=== PATIENT | female | born 1980 | race Caucasian/White ===

== ENCOUNTER 2017-12-26 08:43 | Emergency (ER) | payer MEDICAID ==
[~2017-12-26] VITALS: Ht 170.2 cm; Wt 82.0 kg
[2017-12-26 08:45] VITALS: BP 110/74
[2017-12-26] MEDS ORDERED: HYDROmorphone 2 MG/ML, 1ML ONE (09:12)
[2017-12-26] MEDS ORDERED: KETOROLAC 30 MG/1 ML ONE (09:13)
[2017-12-26] MEDS ORDERED: METHOCARBAMOL 750 MG TABLET ONE (09:13)
[2017-12-26] MEDS ORDERED: ONDANSETRON ODT 4 MG ONE (09:21)
[2017-12-26] MEDS ORDERED: HYDROmorphone 1 MG/ML, 1ML IM ONE (09:30)
[2017-12-26] MEDS ORDERED: ONDANSETRON ODT 4 MG PO ONE (09:30)
[2017-12-26] MEDS ORDERED: METHOCARBAMOL 750 MG TABLET PO ONE (09:30)
[2017-12-26] MEDS ORDERED: KETOROLAC 30 MG/1 ML IM ONE (09:30)
== END 2017-12-26 09:59 | disposition home or self-care (01) ==
LOC: ED 09:50
DX: S39.012A Strain of muscle, fascia and tendon of lower back, initial encounter (principal); Z88.0 Allergy status to penicillin; Z88.5 Allergy status to narcotic agent; Y93.89 Activity, other specified; X58.XXXA Exposure to other specified factors, initial encounter; Y92.89 Other specified places as the place of occurrence of the external cause; Y99.8 Other external cause status
CPT/HCPCS: 96372; 99284; J1170; J1885; Q0162

== ENCOUNTER 2018-01-22 00:18 | Emergency (ER) | payer OTHER, MEDICAID ==
[~2018-01-22] VITALS: Ht 170.2 cm; Wt 86.1 kg
[2018-01-22] MEDS ORDERED: CYCL-259 PO (00:32)
[2018-01-22 01:18] LABS: BASOPHILS # (AUTO) 0.08 x10^3/uL (0-0.1); BASOPHILS % (AUTO) 1 % (0-1); EOSINOPHILS # (AUTO) 0.04 x10^3/uL (0-0.4); EOSINOPHILS % (AUTO) 1 % (1-7); LYMPHOCYTES # (AUTO) 1.81 x10^3/uL (1-3.4); LYMPHOCYTES % (AUTO) 23 % (22-44); MD NO; MEAN CORPUSCULAR HEMOGLOBIN 29.7 pg (27.0-34.8); MEAN CORPUSCULAR HGB CONC 33.5 g/dL (32.4-35.8); MEAN CORPUSCULAR VOLUME 88.6 fL (80-100); MEAN PLATELET VOLUME 8.7 fL (7.4-10.4); MONOCYTES # (AUTO) 0.65 x10^3/uL (0.2-0.8); MONOCYTES % (AUTO) 8 % (2-9); NEUTROPHILS # (AUTO) 5.29 x10^3/uL (1.8-6.8); NEUTROPHILS % (AUTO) 67 % (42-75); PLATELET COUNT 226 x10^3/uL (130-400); RED BLOOD COUNT 4.75 x10^6/uL (3.82-5.3); RED CELL DISTRIBUTION WIDTH 13.5 % (9.6-15.2)
[2018-01-22 01:23] LABS: ALBUMIN 3.3 g/dL (3.4-5.0); ANION GAP 6 mmol/L (5-15); CALCIUM 8.7 mg/dL (8.5-10.1); CHLORIDE 105 mmol/L (98-107)
[2018-01-22 01:29] LABS: ALANINE AMINOTRANSFERASE 19 U/L (12-78); ALKALINE PHOSPHATASE 57 U/L (45-117); BILIRUBIN,TOTAL 0.5 mg/dL (0.2-1.0); CREATININE 0.94 mg/dL (0.55-1.02); TOTAL PROTEIN 6.7 g/dL (6.4-8.2); TROPONIN I < 0.015 ng/mL (0.000-0.045)
[2018-01-22 01:30] LABS: HCG UR SG 1.023 (1.003-1.030); MICROSCOPIC NOT IND
[2018-01-22 01:33] LABS: CULTURE INDICATED? NO
[2018-01-22 02:39] VITALS: BP 143/76
== END 2018-01-22 02:50 | disposition home or self-care (01) ==
LOC: ED 01:52
DX: K21.0 Gastro-esophageal reflux disease with esophagitis (principal); K29.00 Acute gastritis without bleeding; R19.7 Diarrhea, unspecified; Z88.0 Allergy status to penicillin
CPT/HCPCS: 36415; 80053; 81003; 81025; 83690; 84443; 84484; 85025; 93005; 99285

== ENCOUNTER 2018-06-27 22:11 | Emergency (ER) | payer OTHER, MEDICAID ==
[~2018-06-27] VITALS: Ht 172.7 cm; Wt 88.7 kg
[~2018-06-27 22:11] MED LIST: CYCL-259 PO
[2018-06-27 22:21] VITALS: BP 112/76
[2018-06-27] MEDS ORDERED: HYDROmorphone 2 MG/ML, 1ML ONE (22:53)
[2018-06-27] MEDS ORDERED: DIAZEPAM 5 MG TABLET ONE (22:54)
[2018-06-27] MEDS ORDERED: DIAZEPAM 5 MG/ML, 10ML VIAL IM ONE (23:00)
[2018-06-27] MEDS ORDERED: HYDROmorphone 1 MG/ML, 1ML IM ONE (23:00)
== END 2018-06-27 23:24 | disposition home or self-care (01) ==
LOC: ED 23:00
DX: S46.812A Strain of other muscles, fascia and tendons at shoulder and upper arm level, left arm, initial encounter (principal); M54.2 Cervicalgia; K21.9 Gastro-esophageal reflux disease without esophagitis; G89.29 Other chronic pain; X58.XXXA Exposure to other specified factors, initial encounter; Y93.89 Activity, other specified; Y92.89 Other specified places as the place of occurrence of the external cause; Y99.8 Other external cause status
CPT/HCPCS: 96372; 99283; J1170; J3360

== ENCOUNTER 2018-07-04 19:19 | Emergency (ER) | payer OTHER, MEDICAID ==
[~2018-07-04] VITALS: Ht 172.7 cm; Wt 86.4 kg
[2018-07-04 19:21] VITALS: BP 124/85
== END 2018-07-04 21:03 | disposition home or self-care (01) ==
LOC: ED 21:01
DX: S93.602A Unspecified sprain of left foot, initial encounter (principal); K21.9 Gastro-esophageal reflux disease without esophagitis; W22.01XA Walked into wall, initial encounter; Y93.K1 Activity, walking an animal; Y92.410 Unspecified street and highway as the place of occurrence of the external cause; Y99.8 Other external cause status
CPT/HCPCS: 99283

== ENCOUNTER 2018-09-10 23:06 | Emergency (ER) | payer OTHER, MEDICAID ==
[~2018-09-10] VITALS: Ht 172.7 cm; Wt 84.2 kg
[2018-09-10 23:10] VITALS: BP 114/70
--- NOTE | 2018-09-10 23:19 | NUR ---
TASK RN: PT REPORTS ANXIETY ATTACK X TWO HOURS "I'M JUST UNDER SO MUCH STRESS". PT PWD; APPEARS AGGITATED. RESPIRATIONS EVEN/UNLABORED. PT AMBULATED STEADILY TO ROOM WITH RN. FRIEND ACCOMPANIES.
[2018-09-10] MEDS ORDERED: KETOROLAC 60 MG/2 ML IM ONE (23:30)
[2018-09-10] MEDS ORDERED: LORazepam 2 MG/ML, 1ML IM ONE (23:30)
[2018-09-10] MEDS ORDERED: KETOROLAC 30 MG/1 ML ONE (23:32)
[2018-09-10] MEDS ORDERED: LORazepam 2 MG/ML, 1ML ONE (23:33)
--- NOTE | 2018-09-10 23:54 | NUR ---
PT MEDICATED PER EMAR.
--- NOTE | 2018-09-11 00:06 | NUR ---
REPORT TO KASHIF HERNANDEZ.
--- NOTE | 2018-09-11 00:29 | NUR ---
PT VSS AND UPDATED IN EMR. PT AMBULATED TO REGISTRATION DESK WITH STEADY GAIT FOR D/C HOME WITH EX BOYFRIEND. PT MEDICATED PER SEP.
== END 2018-09-11 00:35 | disposition home or self-care (01) ==
LOC: ED 23:25
DX: F41.0 Panic disorder [episodic paroxysmal anxiety] (principal); J45.41 Moderate persistent asthma with (acute) exacerbation; K21.9 Gastro-esophageal reflux disease without esophagitis; G89.29 Other chronic pain
CPT/HCPCS: 93005; 96372; 99283; J1885; J2060; J7512

== ENCOUNTER 2018-12-03 01:38 | Emergency (ER) | payer OTHER, MEDICAID ==
[~2018-12-03] VITALS: Ht 172.7 cm; Wt 79.0 kg
[2018-12-03 01:41] VITALS: BP 118/77
--- NOTE | 2018-12-03 02:01 | NUR ---
FIRST CONTACT WITH PT. PT STATES THAT SHE THINKS HER IUD HAS SOMEHOW SHIFTED. PT HAVING ABDOMINAL AND LBP AND HAS A RECENT VAGINAL DISCHARGE. PT DENIES V/D. PT'S AOX4. RESPS EVEN AND UNLABORED. BP/SPO2 MONITORS IN PLACE. CALL LIGHT WITHIN REACH. EDMD AT BEDSIDE TO ASSESS.
--- NOTE | 2018-12-03 02:02 | NUR ---
PT TO US NOW.
[2018-12-03] MEDS ORDERED: OXYcodone/APAP 5/325MG TABLET ONE (02:11)
--- NOTE | 2018-12-03 02:23 | NUR ---
PT MEDICATED PER EMAR. PT TOLERATED WELL.
[2018-12-03] MEDS ORDERED: OXYcodone/APAP 5/325MG TABLET PO ONE (02:30)
[2018-12-03 02:42] LABS: MICROSCOPIC NOT IND
[2018-12-03 02:44] LABS: CULTURE INDICATED? NO
--- NOTE | 2018-12-03 03:21 | NUR ---
pt given dc instructions. pt's aox4. resps even and unlabored. pt amb to dc with steady gait. no acute distress at dc.
== END 2018-12-03 03:22 | disposition home or self-care (01) ==
LOC: ED 02:40
DX: R10.2 Pelvic and perineal pain (principal); K21.9 Gastro-esophageal reflux disease without esophagitis; J45.909 Unspecified asthma, uncomplicated; G89.29 Other chronic pain; Z88.0 Allergy status to penicillin; Z88.5 Allergy status to narcotic agent
CPT/HCPCS: 76830; 81003; 81025; 99284

== ENCOUNTER 2019-10-24 05:03 | Emergency (ER) | payer MEDICAID, OTHER ==
[~2019-10-24] VITALS: Ht 172.7 cm; Wt 83.5 kg
[2019-10-24] MEDS ORDERED: OXYcodone/APAP 5/325MG TABLET PO ONE (05:30)
[2019-10-24] MEDS ORDERED: OXYcodone/APAP 5/325MG TABLET ONE (05:34)
[2019-10-24] MEDS ORDERED: DIAZ5TAB PO (05:49)
[2019-10-24] MEDS ORDERED: LAMO100T8 PO (05:49)
[2019-10-24] MEDS ORDERED: [UNRECOGNIZED DRUG - OTHER] (05:49)
--- NOTE | 2019-10-24 05:50 | NUR ---
PT MEDICATED PERMAR. ICE PACK APPLIED TO RIGHT HAND. CALL LIGHT WITHIN REACH. AWAITING XRAY
--- NOTE | 2019-10-24 07:05 | NUR ---
RECEIVED REPORT MARY ARCE. PT ON PHONE, RESPIRATIONS EVEN AND UNLABORED, TECH TO BEDSIDE TO PLACE SPLINT. TALKED WITH PT, NO VISITORS PRESENT, PT HUNG UP PHONE FOR CONVERSATION: ASKED IF SHE FELT COMFORTABLE TO GO HOME, "YES" IF SHE WANTED RESOURCES FOR DOMESTIC VIOLENCE, "NO". PT STATED THAT SHE'S UNSURE IF SHE SLAMMED HER OWN HAND IN THE DOOR, STATES SHE CAN'T REMEMBER BECUASE SHE WAS HEATED IN HER EMOTIONS.
--- NOTE | 2019-10-24 07:07 | NUR ---
REPORT GIVEN TO MARY HO
[2019-10-24 07:24] VITALS: BP 117/58
== END 2019-10-24 07:37 | disposition home or self-care (01) ==
LOC: ED 05:29
DX: S53.431A Radial collateral ligament sprain of right elbow, initial encounter (principal); S63.521A Sprain of radiocarpal joint of right wrist, initial encounter; S60.221A Contusion of right hand, initial encounter; J45.909 Unspecified asthma, uncomplicated; K21.9 Gastro-esophageal reflux disease without esophagitis; X58.XXXA Exposure to other specified factors, initial encounter; Y93.89 Activity, other specified; Y92.89 Other specified places as the place of occurrence of the external cause; Y99.8 Other external cause status
CPT/HCPCS: 29125; 99284